=== PATIENT | male | born 1985 | race African-American/Black ===

== ENCOUNTER 2018-10-21 08:19 | Emergency (ER) | payer OTHER ==
[2018-10-21] MEDS ORDERED: Sodium Chloride 0.9% 10 ML Syringe FLUSH PRN (09:06)
[2018-10-21] MEDS ORDERED: Prochlorperazine 10 MG/2 ML SDV IVPUSH ONE (09:06)
[2018-10-21] MEDS ORDERED: diphenhydrAMINE 50 MG/ML SDV IVPUSH ONE (09:07)
[2018-10-21] MEDS ORDERED: Ketorolac 30 MG/ML SDV IVPUSH ONE (09:07)
[2018-10-21] MEDS ORDERED: Ketorolac 15 MG/ML SDV ONE (09:26)
--- NOTE | 2018-10-21 10:16 | EDM.PDOC ---
ED HPI GENERAL MEDICAL PROBLEM - General Chief Complaint: Headache Stated Complaint: HEADACHE Time Seen by Provider: 10/21/18 08:31 Source of Information: Reports: Patient History Limitations: Reports: No Limitations - History of Present Illness INITIAL COMMENTS - FREE TEXT/NARRATIVE: The patient presents with a headache. This started on Tuesday. The pain was behind his right eye to the right adventism and then it moved to the left adventism. The pain is all over his head now. He says the pain has been coming and going. He has a history of migraines when he was younger. He has some nausea but no vomiting. He has no fever, chills, cough, chest pain, shortness of breath, or abdominal pain. He has no blurred vision or double vision. He has no numbness or weakness. Onset: Gradual Duration: Day(s): (5) Location: Reports: Head Quality: Reports: Sharp Severity: Moderate Improves with: Reports: None Worsens with: Reports: None Associated Symptoms: Reports: Headaches, Nausea/Vomiting. 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 [No Known Home Meds] 10/21/18 [History] Past Medical History Cardiovascular History: Reports: None Respiratory History: Reports: None Gastrointestinal History: Reports: None Genitourinary History: Reports: None Musculoskeletal History: Reports: None Neurological History: Reports: None Psychiatric History: Reports: None Endocrine/Metabolic History: Reports: None Hematologic History: Reports: None Immunologic History: Reports: None Oncologic (Cancer) History: Reports: None Dermatologic History: Reports: None - Infectious Disease History Infectious Disease History: Reports: None - Past Surgical History Head Surgeries/Procedures: Reports: None HEENT Surgical History: Reports: Oral Surgery Social & Family History - Tobacco Use Smoking Status *Q: Never Smoker - Caffeine Use Caffeine Use: Reports: None - Recreational Drug Use Recreational Drug Use: Yes Recreational Drug Type: Reports: Marijuana/Hashish ED ROS GENERAL - Review of Systems Review Of Systems: See Below Constitutional: Reports: No Symptoms HEENT: Reports: No Symptoms Respiratory: Reports: No Symptoms Cardiovascular: Reports: No Symptoms Endocrine: Reports: No Symptoms GI/Abdominal: Reports: Nausea. Denies: Abdominal Pain, Vomiting : Reports: No Symptoms Musculoskeletal: Reports: No Symptoms Neurological: Reports: Headache - Physical Exam Exam: See Below Exam Limited By: No Limitations General Appearance: Alert, No Apparent Distress Ears: Normal External Exam Nose: Normal Inspection Head Exam: Atraumatic, Normocephalic Neck: Normal Inspection, Supple, Non-Tender Respiratory/Chest: No Respiratory Distress, Lungs Clear, Normal Breath Sounds Cardiovascular: Regular Rate, Rhythm, No Edema, No Murmur GI/Abdominal: Soft, Non-Tender, No Organomegaly, No Mass Neuro Exam (Abbreviated): Alert, Oriented, No Motor/Sensory Deficits Course - Vital Signs Last Recorded V/S: Last Vital Signs Temp 98.0 F 10/21/18 08:30 Pulse 72 10/21/18 08:30 Resp 16 10/21/18 08:30 BP 124/75 10/21/18 08:30 Pulse Ox 100 10/21/18 08:30 - Orders/Labs/Meds Orders: Active Orders 24 hr Category Date Time Status Peripheral IV Care [RC] . DIRECTED Care 10/21/18 09:06 Active Sodium Chloride 0.9% [Saline Flush] Med 10/21/18 09:06 Active 10 ml FLUSH ASDIRECTED PRN Peripheral IV Insertion Adult [OM.PC] Routine Oth 10/21/18 09:06 Ordered Medication Orders Sodium Chloride (Saline Flush) 10 ml FLUSH ASDIRECTED PRN PRN Reason: Keep Vein Open Last Admin: 10/21/18 09:34 Dose: 10 ml Meds: Medications Generic Name Dose Route Start Last Admin Trade Name Freq PRN Reason Stop Dose Admin Sodium Chloride 10 ml 10/21/18 09:06 10/21/18 09:34 Saline Flush FLUSH 10 ml ASDIRECTED PRN Administration Keep Vein Open Discontinued Medications Generic Name Dose Route Start Last Admin Trade Name Freq PRN Reason Stop Dose Admin Diphenhydramine HCl 50 mg 10/21/18 09:07 10/21/18 09:34 Benadryl IVPUSH 10/21/18 09:08 50 mg ONETIME ONE Administration Ketorolac Tromethamine 30 mg 10/21/18 09:07 10/21/18 09:39 Toradol IVPUSH 10/21/18 09:08 30 mg ONETIME ONE Administration Ketorolac Tromethamine Confirm 10/21/18 09:26 10/21/18 09:37 Toradol Administered 10/21/18 09:27 Not Given Dose 30 mg .ROUTE .STK-MED ONE Prochlorperazine Edisylate 10 mg 10/21/18 09:06 10/21/18 09:36 Compazine IVPUSH 10/21/18 09:07 10 mg ONETIME ONE Administration - Re-Assessments/Exams Free Text/Narrative Re-Assessment/Exam: 10/21/18 10:13 I had my nurse put an IV saline lock in and give him toradol 30mg IV, benadryl 50mg IV and compazine 10mg IV. He feels much better after that. I will discharge him home. Departure - Departure Time of Disposition: 10:15 Disposition: Home, Self-Care 01 Condition: Good Clinical Impression: Migraine - Discharge Information *PRESCRIPTION DRUG MONITORING PROGRAM REVIEWED*: Not Applicable *COPY OF PRESCRIPTION DRUG MONITORING REPORT IN PATIENT [place]: Not Applicable Referrals: PCP,None [Primary Care Provider] - Additional Instructions: Go home and rest in a quiet dark room. Please return if you are worse. - My Orders Last 24 Hours: My Active Orders 10/21/18 09:06 Peripheral IV Care [RC] . DIRECTED Sodium Chloride 0.9% [Saline Flush] 10 ml FLUSH ASDIRECTED PRN Peripheral IV Insertion Adult [OM.PC] Routine - Assessment/Plan Last 24 Hours: My Active Orders 10/21/18 09:06 Peripheral IV Care [RC] . DIRECTED Sodium Chloride 0.9% [Saline Flush] 10 ml FLUSH ASDIRECTED PRN Peripheral IV Insertion Adult [OM.PC] Routine
== END 2018-10-21 10:35 | disposition home or self-care (01) ==
LOC: JD.ED 08:19
DX: G43.909 Migraine, unspecified, not intractable, without status migrainosus (principal); Z98.890 Other specified postprocedural states
CPT/HCPCS: 96374; 96375; 99283; J0780; J1200; J1885; 99284